=== PATIENT | male | born 1995 | race Caucasian/White ===

== ENCOUNTER 2018-09-27 15:44 | Emergency (ER) | payer BC ==
[2018-09-27] MEDS ORDERED: ONDANSETRON 4 MG/2 ML VIAL IVP ONE (16:07)
[2018-09-27] MEDS ORDERED: NS 1,000 ML IV ONE ×2 (16:07→17:35)
--- NOTE | 2018-09-27 16:22 | EDPHY ---
H & P Stated Complaint: n/v, chills Time Seen by Provider: 09/27/18 16:06 HPI/ROS: CHIEF COMPLAINT: Vomiting, chills HISTORY OF PRESENT ILLNESS: 23-year-old male presents with vomiting and chills. Onset of nausea and vomiting this morning, followed by a shaking chills and subjective fever. Associated with diffuse and moderate myalgias. Took Zofran 4 mg ODT x2 at home without relief. Chronic cough, without recent change. No URI symptoms. REVIEW OF SYSTEMS: complete 10 point ROS reviewed and is negative except for the noted elements in the HPI - Personal History Current Tetanus/Diphtheria Vaccine: Yes Current Tetanus Diphtheria and Acellular Pertussis (TDAP): Yes - Medical/Surgical History Hx Asthma: No Hx Chronic Respiratory Disease: No Hx Diabetes: No Hx Cardiac Disease: No Hx Renal Disease: No Hx Cirrhosis: No Hx Alcoholism: No Hx HIV/AIDS: No Hx Splenectomy or Spleen Trauma: No Other PMH: Immuno deficiency - Social History Smoking Status: Never smoked Alcohol Use: Sober Drug Use: None - Physical Exam Exam: General Appearance: Alert, pleasant, nontoxic-appearing Eyes: Pupils equal and round, no conjunctival pallor or injection ENT, Mouth: Mucous membranes moist, pharyngeal erythema Neck: Normal inspection Respiratory: Lungs are clear to auscultation Cardiovascular: Regular rate and rhythm Gastrointestinal: Abdomen is soft and nontender Neurological: A&O, nonfocal exam Skin: Warm and dry, no rash Extremities: Nontender, no pedal edema Psychiatric: Mood and affect normal Constitutional: Initial Vital Signs Temperature (C) 37.2 C 09/27/18 15:48 Heart Rate 96 09/27/18 15:48 Respiratory Rate 16 09/27/18 15:48 Blood Pressure 122/87 H 09/27/18 15:48 O2 Sat (%) 94 09/27/18 15:48 O2 Delivery Mode Room Air Allergies/Adverse Reactions: No Known Allergies Allergy (Unverified 09/27/18 15:48) Home Medications: Medication Instructions Recorded Bactrim DS 09/27/18 Itraconazole 09/27/18 Lexapro 09/27/18 Ondansetron Odt [Zofran Odt 4 mg 4 mg PO Q4 PRN #6 tab 09/27/18 (*)] Zofran 09/27/18 Medical Decision Making ED Course/Re-evaluation: This pt presents wih an influenza-like illness. IV normal saline 1 L and Zofran 4 mg IV given. Feels much better after IVF and Zofran. Abd exam remains benign. Flu swab negative. Symptomatic care discussed. Warning signs given. Differential Diagnosis: includes though not limited to gastroenteritis, influenza, pneumonia, SBO, appy - Data Points Laboratory Results: Laboratory Results 09/27/18 16:30 09/27/18 16:30 Medications Given: Discontinued Medications Sodium Chloride (Ns) 1,000 mls @ 0 mls/hr IV EDNOW ONE; Wide Open PRN Reason: Protocol Stop: 09/27/18 16:08 Last Admin: 09/27/18 16:30 Dose: 1,000 mls Sodium Chloride (Ns) 1,000 mls @ 0 mls/hr IV EDNOW ONE; Wide Open PRN Reason: Protocol Stop: 09/27/18 17:36 Last Admin: 09/27/18 17:35 Dose: 1,000 mls Ondansetron HCl (Zofran) 4 mg IVP EDNOW ONE Stop: 09/27/18 16:08 Last Admin: 09/27/18 16:33 Dose: 4 mg Departure - Departure Disposition: Home, Routine, Self-Care Clinical Impression: Viral syndrome Vomiting Qualifiers: Vomiting type: unspecified Vomiting Intractability: non-intractable Nausea presence: with nausea Qualified Code(s): R11.2 - Nausea with vomiting, unspecified Condition: Good Instructions: Acute Nausea and Vomiting (ED), Viral Syndrome (ED) Additional Instructions: 1. Clear liquids for 24 hours. 2. Advance diet as tolerated. I suggest the BRAT diet to start: bananas, rice, applesauce and toast. 3. Return for worsening symptoms, persistent vomiting, abdominal pain, any concerns. Referrals: JODY BECKHAM [Other] - As per Instructions Prescriptions: Ondansetron Odt [Zofran Odt 4 mg (*)] 4 mg PO Q4 PRN #6 tab PRN Reason: Nausea
[2018-09-27 16:42] LABS: PLATELET COUNT 229 10^3/uL (150-400)
[2018-09-27 18:40] VITALS: BP 123/61
== END 2018-09-27 18:40 | disposition home or self-care (01) ==
DX: B34.9 Viral infection, unspecified (principal); R11.2 Nausea with vomiting, unspecified; E86.9 Volume depletion, unspecified
CPT/HCPCS: 96374; J2405

== ENCOUNTER 2018-10-01 23:02 | Emergency (ER) | payer BC ==
[2018-10-01] MEDS ORDERED: ONDANSETRON 4 MG/2 ML VIAL ONE (23:08)
[2018-10-01] MEDS ORDERED: NS 1,000 ML IV ONE ×2 (23:11→23:16)
--- NOTE | 2018-10-01 23:11 | EDPHY ---
H & P Stated Complaint: abd pain, N/V since 7pm tonight Time Seen by Provider: 10/01/18 23:11 HPI/ROS: HPI CHIEF COMPLAINT: Nausea, vomiting, diarrhea. HISTORY OF PRESENT ILLNESS: 23-year-old male presents emergency room nausea vomiting diarrhea. He states disturbance 6:00 p.m.. Vomited 6 times. Clear. No blood. No bile. Also had watery diarrhea. Did not eat anything funny today. No fever. He reports that he was in the emergency room earlier this week with similar episode. Patient does smoke marijuana regularly but denies this being marijuana use. He does have medical history for immunodeficiency. He presents emergency room main complaint ongoing nausea vomiting diarrhea. Started abruptly tonight. Past Medical History: Immune deficiency Past Surgical History: No recent surgery Social History: Marijuana use. No alcohol or other drugs. Family History: Noncontributory ROS REVIEW OF SYSTEMS: 10 Systems were reviewed and negative with the exception of the elements mentioned in the history of present illness. Exam Constitutional nontoxic, vital signs stable triage nursing summary reviewed, vital signs reviewed, awake/alert. Eyes normal conjunctivae and sclera, EOMI, PERRLA. HENT normal inspection, atraumatic, moist mucus membranes, no epistaxis, neck supple/ no meningismus, no raccoon eyes. Respiratory clear to auscultation bilaterally, normal breath sounds, no respiratory distress, no wheezing. Cardiovascular rate normal, regular rhythm, no murmur, no edema, distal pulses normal. Gastrointestinal soft, non-tender, no rebound, no guarding, normal bowel sounds, no distension, no pulsatile mass. Genitourinary no CVA tenderness. Musculoskeletal no midline vertebral tenderness, full range of motion, no calf swelling, no tenderness of extremities, no meningismus, good pulses, neurovascularly intact. Skin pink, warm, & dry, no rash, skin atraumatic. Neurologic awake, alert and oriented x 3, AAOx3, moves all 4 extremities equally, motor intact, sensory intact, CN II-XII intact, normal cerebellar, normal vision, normal speech. Psychiatric normal mood/affect. Heme/Lymph/Immune no lymphadenopathy. Differential Diagnosis: Includes but is not limited to in a particular order dehydration electrolyte disturbance, acute nausea vomiting diarrhea, viral syndrome, appendicitis, bowel obstruction Medical Decision Making: Plan for this patient IV establishment IV fluid bolus 2 L normal saline, IV Phenergan for nausea, basic blood work, re-evaluate. Re-evaluation: CT scan abdomen pelvis with IV contrast shows fluid-filled small bowel loops no evidence of acute appendicitis. No otherwise acute inflammatory process called to me by Dr. Gonsalez. 0521AM: Patient re-evaluated this time p.o. Challenge well without vomiting. Abdomen remained soft nontender. Blood work reviewed. He had a high white blood cell count however most likely reactive due to nausea vomiting. Dehydration. Patient is feeling much better after 2 L of fluid and nausea medicine. He would like to go home. CT abdomen pelvis with IV contrast reviewed this does show some fluid filled small bowel loops consistent with enteritis. No other acute inflammatory process. Patient's vital signs stable. Afebrile nontoxic. Patient like to go home. Take-home pack of Phenergan. I discussed return precautions with him he understands return emergency room if develops worsening abdominal pain, fever, vomiting. Source: Patient - Personal History Current Tetanus Diphtheria and Acellular Pertussis (TDAP): Yes Tetanus Vaccine Date: less 10 years - Medical/Surgical History Hx Asthma: No Hx Chronic Respiratory Disease: No Hx Diabetes: No Hx Cardiac Disease: No Hx Renal Disease: No Hx Cirrhosis: No Hx Alcoholism: No Hx HIV/AIDS: No Hx Splenectomy or Spleen Trauma: No Other PMH: Immuno deficiency - Social History Smoking Status: Former smoker Constitutional: Initial Vital Signs Temperature (C) 36.6 C 10/01/18 23:04 Heart Rate 96 10/01/18 23:04 Respiratory Rate 20 10/01/18 23:04 Blood Pressure 115/61 10/01/18 23:04 O2 Sat (%) 97 10/01/18 23:04 O2 Delivery Mode Room Air O2 (L/minute) 2 Allergies/Adverse Reactions: No Known Allergies Allergy (Verified 10/01/18 23:07) Home Medications: Medication Instructions Recorded Bactrim DS 09/27/18 Itraconazole 09/27/18 Lexapro 09/27/18 Ondansetron Odt [Zofran Odt 4 mg 4 mg PO Q4 PRN #6 tab 09/27/18 (*)] Zofran 09/27/18 Medical Decision Making - Data Points Laboratory Results: Laboratory Results 10/01/18 23:30 10/01/18 23:30 10/01/18 10/01/1818 23:30 23:30 04:28 WBC 18.01 10^3/uL H 10^3/uL (3.80-9.50) RBC 5.98 10^6/uL 10^6/uL (4.40-6.38) Hgb 17.7 g/dL H g/dL (13.7-17.5) Hct 51.6 % H % (40.0-51.0) MCV 86.3 fL fL (81.5-99.8) MCH 29.6 pg pg (27.9-34.1) MCHC 34.3 g/dL g/dL (32.4-36.7) RDW 12.8 % % (11.5-15.2) Plt Count 260 10^3/uL 10^3/uL (150-400) MPV 9.3 fL fL (8.7-11.7) Neut % (Auto) 91.7 % H % (39.3-74.2) Lymph % (Auto) 3.4 % L % (15.0-45.0) [place] % (Auto) 3.9 % L % (4.5-13.0) Eos % (Auto) 0.4 % L % (0.6-7.6) Baso % (Auto) 0.2 % L % (0.3-1.7) Nucleat RBC Rel Count 0.0 % % (0.0-0.2) Absolute Neuts (auto) 16.50 10^3/uL H 10^3/uL (1.70-6.50) Absolute Lymphs (auto) 0.62 10^3/uL L 10^3/uL (1.00-3.00) Absolute Monos (auto) 0.70 10^3/uL 10^3/uL (0.30-0.80) Absolute Eos (auto) 0.08 10^3/uL 10^3/uL (0.03-0.40) Absolute Basos (auto) 0.03 10^3/uL 10^3/uL (0.02-0.10) Absolute Nucleated RBC 0.00 10^3/uL 10^3/uL (0-0.01) Immature Gran % 0.4 % % (0.0-1.1) Immature Gran # 0.08 10^3/uL 10^3/uL (0.00-0.10) Sodium 136 mEq/L mEq/L (135-145) Potassium 4.6 mEq/L mEq/L (3.5-5.2) Chloride 104 mEq/L mEq/L (97-110) Carbon Dioxide 18 mEq/l L mEq/l (22-31) Anion Gap 14 mEq/L mEq/L (6-14) BUN 27 mg/dL H mg/dL (7-23) Creatinine 0.9 mg/dL mg/dL (0.7-1.3) Estimated GFR > 60 Glucose 135 mg/dL H mg/dL (70-100) Calcium 10.0 mg/dL mg/dL (8.5-10.4) Total Bilirubin 1.4 mg/dL mg/dL (0.1-1.4) Conjugated Bilirubin 0.3 mg/dL mg/dL (0.0-0.5) Unconjugated Bilirubin 1.1 mg/dL mg/dL (0.0-1.1) AST 30 IU/L IU/L (17-59) ALT 27 IU/L IU/L (21-72) Alkaline Phosphatase 104 IU/L IU/L (38-126) Total Protein 8.5 g/dL H g/dL (6.3-8.2) Albumin 5.3 g/dL H g/dL (3.5-5.0) Lipase 130 IU/L IU/L (23-300) Urine Color YELLOW Urine Appearance CLEAR Urine pH 6.0 (5.0-7.5) Ur Specific [place] > 1.060 H (1.002-1.030) Urine Protein NEGATIVE (NEGATIVE) Urine Ketones TRACE H (NEGATIVE) Urine Blood NEGATIVE (NEGATIVE) Urine Nitrate NEGATIVE (NEGATIVE) Urine Bilirubin NEGATIVE (NEGATIVE) Urine Urobilinogen NEGATIVE EU EU (0.2-1.0) Ur Leukocyte Esterase NEGATIVE (NEGATIVE) Urine Glucose NEGATIVE (NEGATIVE) Urine Opiates Screen NEGATIVE (NEGATIVE) Urine Barbiturates NEGATIVE (NEGATIVE) Ur Phencyclidine Scrn NEGATIVE (NEGATIVE) Ur Amphetamine Screen NON-NEGATIVE H (NEGATIVE) U Benzodiazepines Scrn NON-NEGATIVE H (NEGATIVE) Urine Cocaine Screen NEGATIVE (NEGATIVE) U Marijuana (THC) Screen NON-NEGATIVE H (NEGATIVE) Medications Given: Discontinued Medications Famotidine (Pepcid) 20 mg IVP EDNOW ONE Stop: 10/01/18 23:18 Last Admin: 10/01/18 23:25 Dose: 20 mg Sodium Chloride (Ns) 1,000 mls @ 0 mls/hr IV EDNOW ONE; Wide Open PRN Reason: Protocol Stop: 10/01/18 23:12 Last Admin: 10/01/18 23:25 Dose: 1,000 mls Sodium Chloride (Ns) 1,000 mls @ 0 mls/hr IV ONCE ONE PRN Reason: Wide Open Stop: 10/01/18 23:17 Last Admin: 10/01/18 23:25 Dose: 1,000 mls Lorazepam (Ativan Injection) 1 mg IVP EDNOW ONE Stop: 10/02/18 02:21 Last Admin: 10/02/18 02:23 Dose: 1 mg Promethazine HCl (Phenergan) 6.25 mg IVP ONCE ONE Stop: 10/01/18 23:17 Last Admin: 10/01/18 23:25 Dose: 6.25 mg Promethazine HCl (Phenergan) 6.25 mg IVP ONCE ONE Stop: 10/02/18 01:27 Last Admin: 10/02/18 01:36 Dose: 6.25 mg Departure - Departure Disposition: Home, Routine, Self-Care Clinical Impression: Vomiting and diarrhea Condition: Good Instructions: Acute Nausea and Vomiting (ED) Additional Instructions: 1. [place] diet over the next 24-48 hours 2. Return to the emergency room if worsening abdominal pain, fever, vomiting Referrals: Patient,NotPresent [Unknown] - As per Instructions
[2018-10-01] MEDS ORDERED: PROMETHAZINE HCL 25 MG/ML INJ IVP ONE (23:16)
[2018-10-01] MEDS ORDERED: FAMOTIDINE 20 MG/2 ML SDV IVP ONE (23:17)
[2018-10-01 23:36] LABS: PLATELET COUNT 260 10^3/uL (150-400)
[2018-10-02] MEDS ORDERED: PROMETHAZINE HCL 25 MG/ML INJ IVP ONE (01:26)
[2018-10-02] MEDS ORDERED: IOPAMIDOL (ISOVUE-300) 100 ML BTL ONE (01:31)
[2018-10-02] MEDS ORDERED: LORazepam 2 MG/ML INJ IVP ONE (02:20)
[2018-10-02] MEDS ORDERED: PROMETHAZINE 25 MG PREPACK #4 BTL TAKEHOME ONE (05:23)
[2018-10-02 05:36] VITALS: BP 122/74
== END 2018-10-02 05:36 | disposition home or self-care (01) ==
DX: R11.10 Vomiting, unspecified (principal); R19.7 Diarrhea, unspecified; E86.9 Volume depletion, unspecified; D84.9 Immunodeficiency, unspecified; F12.90 Cannabis use, unspecified, uncomplicated; Z87.891 Personal history of nicotine dependence
CPT/HCPCS: 80305; 96374; J2060; J2405; J2550; Q9967

== ENCOUNTER 2018-10-15 13:48 | Emergency (ER) | payer SELFPAY ==
[2018-10-15] MEDS ORDERED: TDAP ADULT 0.5 ML INJ (BOOSTRIX) IM ONE (15:03)
--- NOTE | 2018-10-15 15:06 | EDPHY ---
H & P Stated Complaint: LAC W/ UTILITY KNIFE L FA AT NOON Time Seen by Provider: 10/15/18 15:03 HPI/ROS: HPI: This is a 23-year-old male who presents with Chief Complaint: LAC W/ UTILITY KNIFE L FA AT NOON Location: Left forearm Quality: Laceration Duration: Prior to arrival Signs and Symptoms: + bleeding, no radiation, no numbness, no weakness, no tingling, no incontinence, no decreased range of motion, no swelling, + pain, no fever Timing: Acute Severity: [id number] Context: Patient is right-hand dominant, presents with accidentally stabbing volar aspect of his left forearm with utility knife 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 Patient reports that it started to bleed and he felt moderate, constant, nonradiating discomfort. Unsure of tetanus status. Denies radiation, decreased range of motion, paresthesias Modifying Factors: He applied direct pressure to get the bleeding to stop. Comment: ROS: A comprehensive 10 system review of systems is otherwise negative aside from elements mentioned in the history of present illness. MEDICAL/SURGICAL/SOCIAL HISTORY: Medical history: Generally healthy. Does not take any regular medications. 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 CONSTITUTIONAL: Anxious, young adult white male, awake and alert, no obvious distress HEENT: Atraumatic and normocephalic. NECK: supple EXTREMITIES: 2/2 pulses, strength 5/5, left forearm shows 1.5 cm, deep, simple laceration in the middle of the forearm on the volar aspect. No active bleeding. Patient has full range of motion at the elbow and wrist. DIP/PIP/ MCP flexion/extension intact with good light touch sensation. no deformities, no clubbing, no cyanosis or edema. NEUROLOGICAL: no focal neuro deficits. GCS 15. Light touch sensation intact. SKIN: Warm and dry, no erythema. no rash. Good capillary refill. Source: Patient Exam Limitations: No limitations - Personal History Current Tetanus Diphtheria and Acellular Pertussis (TDAP): Unsure Tetanus Vaccine Date: less 10 years - Medical/Surgical History Hx Asthma: No Hx Chronic Respiratory Disease: No Hx Diabetes: No Hx Cardiac Disease: No Hx Renal Disease: No Hx Cirrhosis: No Hx Alcoholism: No Hx HIV/AIDS: No Hx Splenectomy or Spleen Trauma: No Other PMH: Immuno deficiency, THORASIC INFECTION W/ DRAINAGE-2015 - Social History Smoking Status: Former smoker Constitutional: Initial Vital Signs Temperature (C) 36.5 C 10/15/18 13:56 Heart Rate 83 10/15/18 13:56 Respiratory Rate 16 10/15/18 13:56 Blood Pressure 124/80 H 10/15/18 13:56 O2 Sat (%) 96 10/15/18 13:56 O2 Delivery Mode Room Air Allergies/Adverse Reactions: No Known Allergies Allergy (Verified 10/15/18 13:55) Home Medications: Medication Instructions Recorded Bactrim DS 09/27/18 Itraconazole 09/27/18 Lexapro 09/27/18 Medical Decision Making Procedures: Procedure: Laceration repair. Verbal consent was obtained from the patient. The 2.5 cm, simple, deep laceration on the left forearm was anesthetized in the usual fashion using 6 mL of 1% lidocaine with epinephrine. The wound was irrigated, draped and explored to its base with a gloved finger. There were no deep structures involved. No tendon injury was identified. The wound was repaired with #1, portal suture stitch, 4 0 Prolene. Good hemostasis was achieved and patient tolerated procedure well. The procedure was performed by myself. Procedure: Splint placement. A Velcro volar splint was applied by the Emergency Room quality assurance/r&d lab technician. After application of the splint I returned and re-examined the patient. The splint was adequately immobilizing the joint and distal to the splint the patient's circulation and sensation was intact. ED Course/Re-evaluation: Vital signs reviewed and stable upon arrival. Tetanus booster ordered Local anesthesia provided and irrigated copiously Laceration repair Written and verbal wound care instructions provided Volar Velcro splint applied per patient request. No signs of neurovascular compromise/tenting of skin/compartment syndrome/ extremities and joints examined above and below area of concern and are neurovascularly intact. This patient was seen under the supervision of my secondary supervising physician. I evaluated care for this patient independently. Discussed this patient with Dr. Ziegler who did not see the patient. Differential Diagnosis: Differential diagnosis includes but is not limited to laceration, foreign body, tendon injury, blood vessel injury. Departure - Departure Disposition: Home, Routine, Self-Care Clinical Impression: Laceration of left forearm without complication Qualifiers: Encounter type: initial encounter Qualified Code(s): S51.812A - Laceration without foreign body of left forearm, initial encounter Condition: Good Instructions: Care For Your Stitches (ED), Laceration (ED) Additional Instructions: Wear the splint until pain free or sutures removed. After 48 hours, you may remove the dressing; wash the site daily with mild soap and water; then pat dry. Take Tylenol 650 mg every 4 hours and/or Ibuprofen 600 mg every 8 hours with food as needed for pain. Wound Care Follow-Up: Removal of sutures in [7-10] days. Suture removal is complimentary in uncomplicated cases. Infection or abnormal findings would require reevaluation by the MD. In that case, you may be billed. Work Related Injury: Date of Injury (if different from Date of Service): 10/15/2018 Your work restrictions, if any, last only until the next business day. Formal evaluation for work restrictions beyond one day must be arranged through your employer's workman's compensation provider. Restrictions are noted below: Return to work today. Right hand work only x 3 days. Referrals: Tye Woods MD [Medical Doctor] - Follow Up Only If Needed
[2018-10-15 15:34] VITALS: BP 128/84
== END 2018-10-15 15:35 | disposition home or self-care (01) ==
PROC: 0HQCXZZ Repair Left Upper Arm Skin, External Approach (ICD-10-PCS; principal; 2018-10-15)
DX: S51.812A Laceration without foreign body of left forearm, initial encounter (principal); W26.0XXA Contact with knife, initial encounter; Y99.0 Civilian activity done for income or pay
CPT/HCPCS: L3984

== ENCOUNTER 2018-11-06 08:33 | Emergency (ER) | payer BC ==
--- NOTE | 2018-11-06 09:10 | EDPHY ---
General Time Seen by Provider: 11/06/18 09:03 Narrative: CLINICAL IMPRESSION: Left ankle pain ASSESSMENT/PLAN: Patient is a 23-year-old male who presents with complaint of left ankle pain after sustaining an eversion ankle injury while at the climbed gym. Patient is nontoxic-appearing, he is in no acute distress on arrival. Ankle x-rays reveal no acute bony abnormality. There was no evidence of acute fracture, dislocation , compartment syndrome or neurovascular compromise. His history and physical examination is most consistent with left ankle sprain. The patient was placed in an Orlin wrap and stirrup. CMS intact post splint placement. Patient had difficulty with ambulation, crutch training provided. Patient was provided a dose of ibuprofen, he will otherwise continue Tylenol and ibuprofen at home. He is in the process of establishing care with new insurance, I provided a referral for him as well for PCP. He was also given referral for orthopedic surgery, he will call to schedule an appointment for follow-up. Return precautions discussed-patient to return to the emergency Department for significantly worsening or uncontrolled pain, significant swelling, numbness or tingling of the extremity, paleness or coolness of his digits, fever or for any other concerning symptom. The patient verbalizes understanding and he is in agreement with this plan. DIFFERENTIAL DX: Fracture, dislocation, sprain ED COURSE: 908: X-rays reviewed and case discussed with Dr. Bingham. ED procedure: Procedure: Splint placement. A stirrup splint was applied. After application of the splint I returned and re -examined the patient. The splint was adequately immobilizing the joint and distal to the splint the patient's circulation and sensation was intact. CHIEF COMPLAINT: Left ankle pain HPI: Patient is a 23-year-old male who presents to the emergency department after sustaining an eversion ankle injury last evening. Patient reports he was at the climbing gym, he was on his way down when he had too much lack and his line causing him to drop about 2 ft. He landed on his left foot causing his left ankle to roll. He immediately experienced pain. He was able to ambulate on it however when he woke up this morning it felt significantly more painful. Pain is described as sharp, he has not tried any thing for pain. He denies any radiation of pain up the leg or into the foot. He denies any knee pain, hip pain or foot pain. Also denies any numbness or tingling of the extremity. No previous injury or surgery to this extremity. PAST MEDICAL HISTORY: Chronic granulomatous disorder Pertinent Past Surgical History: Denies Family History: Noncontributory Social History: Denies illicit drug use ROS: A full 10 point review of systems was negative except for those mentioned in HPI. PHYSICAL EXAM: General Appearance: Well-appearing, no acute distress. HEENT: Normocephalic, atraumatic. External ears are normal. TMs are clear bilaterally. Oropharynx clear is no erythema or exudates, no tonsillar hypertrophy or asymmetry. Dentition without abnormality. Eyes: PERRLA, no acute vision change, nystagmus, swelling, discharge, pain or photosensitivity. Conjunctiva pink, no pallor or injection Neck: Supple, nontender, no lymphadenopathy, no midline pain, FROM, no meningismus. Respiratory: There are no retractions, lungs are clear to auscultation. Cardiac: Regular rate and rhythm, no murmurs or gallops. Gastrointestinal: Abdomen is soft, nontender, bowel sounds normal, no masses/ hernia, no rigidity, guarding or focal peritoneal findings. Skin: Warm, dry, no rashes, no nodules on palpation. Upper Extremities: Intact distal pulses, Full range of motion intact, no tenderness, no ecchymosis or edema Lower Extremities: Right lower extremity unremarkable, nontender with full range of motion. Left ankle with mild edema overlying the lateral malleolus, tenderness to palpation on the lateral malleolus and inferiorly. He has no tenderness at the base of the 5th metatarsal or navicular bone. First webspace sensation intact and is nontender. Very mild medial malleolar tenderness. No proximal fibular head tenderness. Dorsalis pedis 2+. No calf tenderness bilaterally. MEDICAL DECISION MAKING: Patient was seen independently. Secondary supervising physician at time of evaluation was Dr. Bingham, he did not evaluate this patient however reviewed his x-rays and plan of care.. Diagnosis: Left ankle sprain. New, requires workup Summary: See Assessment and Plan for summary of ED visit Clinical lab tests: Not applicable. Independent visualization of images, tracing, or specimens: Yes. Decision to obtain medical records or history from someone other than the patient: No Review / Summarize previous medical records: Yes Discussed patient with another provider: Yes, Dr. Bingham Patient Progress: Stable, discharge. - Diagnostics Imaging Results: Imaging Impressions Ankle X-Ray 11/06/18 08:41 Impression: Lateral sprain. - History Smoking Status: Former smoker - Objective Vital Signs: Initial Vital Signs Temperature (C) 36.8 C 11/06/18 08:37 Heart Rate 80 11/06/18 08:37 Respiratory Rate 16 11/06/18 08:37 Blood Pressure 129/67 H 11/06/18 08:37 O2 Sat (%) 96 11/06/18 08:37 O2 Delivery Mode Room Air Allergies/Adverse Reactions: No Known Allergies Allergy (Verified 11/06/18 08:37) Home Medications: Medication Instructions Recorded Bactrim DS 09/27/18 Itraconazole 09/27/18 Lexapro 09/27/18 Adderall 10 MG (*) 11/06/18 Departure - Departure Disposition: Home, Routine, Self-Care Clinical Impression: Ankle sprain Qualifiers: Encounter type: initial encounter Involved ligament of ankle: unspecified ligament Laterality: left Qualified Code(s): S93.402A - Sprain of unspecified ligament of left ankle, initial encounter Condition: Good Instructions: Ankle Sprain (ED) Additional Instructions: DISCHARGE INSTRUCTIONS FROM YOUR DOCTOR Thank you for visiting our emergency department today. Please keep in mind that discharge from the emergency department does not mean that there is nothing wrong - it simply means that we have not identified an emergency condition that requires further evaluation or treatment in the hospital. You should always plan to follow up with primary care for re-evaluation of your condition in the next 2-3 days. Rest, ice (on and off), elevate the foot and ankle as much possible above the level of the heart to decrease pain and swelling. Wear the Orlin for compression and splint for comfort. Ambulate as tolerated. For pain, Ibuprofen 400 mg every 6 hours. Do not exceed 2400 mg of ibuprofen in 24 hours. Stop taking this if it upsets her stomach. Tylenol 500 mg every 6 hours. Do not exceed 3000 mg in a 24-hour period. Continue your regular medications as prescribed. Return for increased pain or swelling, numbness, tingling or foot or toes, calf pain, paleness or coolness of the foot or toes or for any worsening or worrisome symptoms. People present with illnesses and injuries in different ways, and it is always possible that we have missed something. You may always return for re-evaluation if symptoms worsen or if they are not improving or if you develop new/different symptoms. Again, thank you for choosing our emergency department. We hope that you feel better. Referrals: Maribeth Britt MD [Medical Doctor] - As per Instructions (Please schedule an appointment to establish care.) Izaiah Adrian MD [Medical Doctor] - 2-3 days, call for appt.
[2018-11-06] MEDS ORDERED: IBUPROFEN 200 MG TAB PO ONE (09:36)
[2018-11-06 10:01] VITALS: BP 118/55
== END 2018-11-06 10:00 | disposition home or self-care (01) ==
DX: S93.402A Sprain of unspecified ligament of left ankle, initial encounter (principal); W17.89XA Other fall from one level to another, initial encounter; Y93.31 Activity, mountain climbing, rock climbing and wall climbing; Y92.39 Other specified sports and athletic area as the place of occurrence of the external cause
CPT/HCPCS: L4350